=== PATIENT | female | born 1980 | race Caucasian/White ===

== ENCOUNTER 2022-09-10 08:54 | Outpatient (CLI) | payer BC, SELFPAY ==
[2022-09-10 12:54] LABS: Glucose* 86 mg/dL (60-115)
== END 2022-09-10 08:55 | disposition home or self-care (01) ==
LOC: NFLDREF 08:56
PROVIDERS: Visit Provider Obstetrics & Gynecology
DX: Z01.419 Encounter for gynecological examination (general) (routine) without abnormal findings (principal); Z13.1 Encounter for screening for diabetes mellitus
CPT/HCPCS: 82947

== ENCOUNTER 2022-12-02 14:58 | Outpatient (CLI) | payer BC, SELFPAY ==
--- NOTE | 2022-12-02 15:00 | CRLHL7_ITS ---
For Patients: As a result of the Century Cures Act, medical imaging exams and procedure reports are released immediately into your electronic medical record. You may view this report before your referring provider. If you have questions, please contact your health care provider. BILATERAL SCREENING MAMMOGRAM WITH COMPUTER-AIDED DETECTION AND TOMOSYNTHESIS TECHNIQUE: CC and MLO views were obtained. These mammographic images have been obtained using full-field digital technique. These mammographic images were interpreted with the benefit of computer-aided detection. Breast Tomosynthesis was used in this interpretation. COMPARISON FILM: 07/26/21, 06/18/20, 08/02/14. FINDINGS: The breasts are heterogeneously dense, which may obscure small masses IMPRESSION: There is no radiographic evidence for malignancy. ASSESSMENT: BI-RADS Category 2: Benign RECOMMENDATION: Routine screening mammogram in 1 year. A lay language report of this examination will be provided to the patient. Jasbir Rowland M.D. Diagnostic Radiologist [email or web address] LESLIE/Dictated by: Jasbir Rowland MD @ 12/03/2022 11:07:00 AM (Electronically Signed)
== END 2022-12-02 14:59 | disposition home or self-care (01) ==
LOC: MAMMO 14:59
PROVIDERS: PCP Obstetrics & Gynecology; Visit Provider Obstetrics & Gynecology
DX: Z12.31 Encounter for screening mammogram for malignant neoplasm of breast (principal); R92.2 Inconclusive mammogram
CPT/HCPCS: 77063; 77067

== ENCOUNTER 2024-03-03 08:11 | Outpatient (CLI) | payer BC, SELFPAY ==
--- NOTE | 2024-03-03 08:15 | MM_ITS ---
Patient: KENYATTA HIGGINBOTHAM Facility:?[facility] Patient ID:?[id number] Site Patient ID:?[id number]. Site :?[id number] Study:?XRay-Breast Bilateral 3D W/CAD-03/03/2024 8:37:13 AM Ordering Physician:?Shana Final Report: BILATERAL SCREENING MAMMOGRAM WITH COMPUTER-AIDED DETECTION AND TOMOSYNTHESIS TECHNIQUE: CC and MLO views were obtained. These mammographic images have been obtained using full-field digital technique. These mammographic images were interpreted with the benefit of computer-aided detection. Breast Tomosynthesis was used in this interpretation. COMPARISON FILM: 12/02/22, 07/26/21, 06/18/20. FINDINGS: The breasts are heterogeneously dense, which may obscure small masses IMPRESSION: There is no radiographic evidence for malignancy. ASSESSMENT: BI-RADS Category 1: Negative RECOMMENDATION: Routine screening mammogram in 1 year. A lay language report of this examination will be provided to the patient. Jasbir Rowland M.D. Diagnostic Radiologist [email or web address] KARY/jeana R& Transcribed: 8:26 p.m. LESLIE/Dictated by: Jasbir Rowland MD @ 03/03/2024 12:24:00 PM Signed by:?Jasbir Rowland MD @03/03/2024 8:30:05 PM (Electronic Signature)
== END 2024-03-03 08:12 | disposition home or self-care (01) ==
LOC: MAMMO 08:13
PROVIDERS: PCP Physician Assistant; Visit Provider Obstetrics & Gynecology
DX: Z12.31 Encounter for screening mammogram for malignant neoplasm of breast (principal); R92.2 Inconclusive mammogram
CPT/HCPCS: 77063; 77067

== ENCOUNTER 2024-03-11 07:40 | Outpatient (CLI) | payer BC, SELFPAY | END 2024-03-11 07:41 | disposition home or self-care (01) | LOC: NFLDREF 03-29 08:49 | PROVIDERS: Referring Provider Physician Assistant; Visit Provider Physician Assistant | DX: Z01.419 Encounter for gynecological examination (general) (routine) without abnormal findings (principal); Z13.6 Encounter for screening for cardiovascular disorders; Z13.29 Encounter for screening for other suspected endocrine disorder | CPT/HCPCS: 80061; 84443 ==

== ENCOUNTER 2025-10-16 10:20 | Outpatient (CLI) | payer BC, SELFPAY ==
[2025-10-18 22:38] LABS: HPV Source Cervical
[2025-10-23 16:16] LABS: Pap Test Digital Imaging Done
== END 2025-10-16 10:21 | disposition home or self-care (01) ==
PROVIDERS: Visit Provider Obstetrics & Gynecology
DX: Z12.4 Encounter for screening for malignant neoplasm of cervix (principal)
CPT/HCPCS: 87624; 87625; 88141; 88142; 88175